=== PATIENT | female | born 1975 | race African-American/Black ===

== ENCOUNTER → 2016-10-26 | Outpatient (CLI) | payer BC | END | disposition home or self-care (01) | LOC: RAD.S 10-12 10:10 | DX: Z12.31 Encounter for screening mammogram for malignant neoplasm of breast (principal) ==

== ENCOUNTER → 2016-11-04 | Outpatient (CLI) | payer BC | END | disposition home or self-care (01) | LOC: RAD.S 10-27 08:51 | DX: R92.2 Inconclusive mammogram (principal); N63 Unspecified lump in breast ==